=== PATIENT | male | born 1990 | race Hispanic/Latino ===

== ENCOUNTER 2018-03-16 21:53 | Emergency (ER) | payer SELFPAY ==
[2018-03-16] MEDS ORDERED: SODIUM CHLORIDE 0.9% 1000ML 1,000 ML IVS ONE (22:10)
[2018-03-16 22:11] VITALS: O2SAT 99
--- NOTE | 2018-03-16 22:29 | ED.PDOC ---
History of Present Illness - General Chief Complaint: Bite: Animal/Insect/Human Stated Complaint: Snake Bite Time Seen by Provider: 03/16/18 22:25 Source: patient, family - Exam Limitations: no limitations - History of Present Illness Initial Comments: Timmy Segovia 27 y/o male brought to ER with snake bite on his right index finger.Stated snake was seen by in their bathroom and called up patient which tired to get hold of the snake but was bitten on the right index finger.No sob,no pain /swelling on the finger,no dizziness. Timing/Duration: 1-3 hours Severity: moderate Improving Factors: nothing Worsening Factors: nothing Associated Symptoms: denies symptoms Allergies/Adverse Reactions: Allergies NO KNOWN ALLERGY Allergy (Verified 03/16/18 22:01) Home Medications: Ambulatory Orders Amoxicillin [Amoxil] 1,000 mg PO BID 7 Days #30 cap 03/16/18 Review of Systems - Review of Systems Constitutional: States: no symptoms reported EENTM: States: no symptoms reported Respiratory: States: no symptoms reported Cardiology: States: no symptoms reported Skin: States: see HPI Neurological: States: no symptoms reported All other Systems: Reviewed and Negative, No Change from Baseline Past Medical History (General) - Patient Medical History Hx Seizures: No Hx Stroke: No Hx Dementia: No Hx Asthma: No Hx of COPD: No Hx Cardiac Disorders: No Hx Congestive Heart Failure: No Hx Pacemaker: No Hx Hypertension: No Hx Thyroid Disease: No Hx Diabetes: No Hx Gastroesophageal Reflux: No Hx Renal Disease: No Hx Cancer: No Hx of HIV: No Hx Hepatitis C: No Hx MRSA: No Surgical History: no surgical history - Vaccination History Hx Tetanus, Diphtheria Vaccination: Yes - 2017 Hx Influenza Vaccination: No Hx Pneumococcal Vaccination: No - Social History Hx Tobacco Use: No Hx Alcohol Use: Yes - Occasional Hx Substance Use: No Hx Substance Use Treatment: No Hx Depression: No Feels Threatened In Home Enviroment: No Feels Threatened In a Relationship: No Hx Physical Abuse: No Hx Emotional Abuse: No Hx Suspected Abuse: No - Activities of Daily Living Hospice Agency (if applicable):: None - Female History Patient is a Female of Child Bearing Age (10 -59 yrs old): No - Triage Comment ED Triage Comment: Pt states that he was bitten by a snake 20 minutes ago by a small snake on his right middle finger. Family Medical History - Family History Mother Family History: Unknown Physical Exam - Physical Exam General Appearance: Alert, Comfortable, No apparent distress Eye Exam: bilateral normal Ears, Nose, Throat: hearing grossly normal, normal ENT inspection Neck: supple Respiratory: lungs clear, normal breath sounds Cardiovascular/Chest: normal peripheral pulses, regular rate, rhythm Peripheral Pulses: radial,right: 2+, radial,left: 2+ Gastrointestinal/Abdominal: non tender, soft, no organomegaly Back Exam: normal inspection, no CVA tenderness, no vertebral tenderness Extremity: non-tender, no pedal edema, no calf tenderness Neurologic: alert, oriented x 3 Skin Exam: normal color, warm/dry, other - right index finger-superficial abrasion middle phalanx;ROM full Progress - Progress Progress: 03/16/18 22:31 Vital Signs - 8 hr 03/16/18 03/16/18 21:59 22:02 Temperature 97.1 F L Pulse Rate [ 71 71 Monitor] Respiratory 18 18 Rate Blood Pressure 134/84 [Left Arm] O2 Sat by Pulse 99 Oximetry 03/16/18 23:48 Patient denies pain,SOB,able to make a fist right hand w/o pain - Results/Orders Results/Orders: Laboratory Results - last 24 hr 03/16/18 03/16/18 03/16/18 22:30 22:30 22:30 WBC 6.0 RBC 4.64 L Hgb 14.3 Hct 40.6 L MCV 87.4 MCH 30.8 MCHC 35.1 RDW 13.4 Plt Count 215 MPV 7.6 Absolute Neuts (auto) 2.70 Absolute Lymphs (auto) 2.50 Absolute Monos (auto) 0.50 Absolute Eos (auto) 0.20 Absolute Basos (auto) 0.00 Neutrophils % 45.9 Lymphocytes % 41.1 Monocytes % 9.1 H Eosinophils % 3.4 Basophils % 0.5 PT 11.0 H INR 1.10 PTT (SP) 27.9 Fibrinogen Sodium 142 Potassium 3.2 L Chloride 108 Carbon Dioxide 27 Anion Gap 10.2 L BUN 13 Creatinine 1.02 BUN/Creatinine Ratio 12.7 Random Glucose 94 Serum Osmolality 283.0 Calcium 9.3 Total Bilirubin 0.9 AST 23 ALT 17 Alkaline Phosphatase 76 Serum Total Protein 7.5 Albumin 4.9 Globulin 2.6 Albumin/Globulin Ratio 1.9 03/16/18 22:30 WBC RBC Hgb Hct MCV MCH MCHC RDW Plt Count MPV Absolute Neuts (auto) Absolute Lymphs (auto) Absolute Monos (auto) Absolute Eos (auto) Absolute Basos (auto) Neutrophils % Lymphocytes % Monocytes % Eosinophils % Basophils % PT INR PTT (SP) Fibrinogen 194 L Sodium Potassium Chloride Carbon Dioxide Anion Gap BUN Creatinine BUN/Creatinine Ratio Random Glucose Serum Osmolality Calcium Total Bilirubin AST ALT Alkaline Phosphatase Serum Total Protein Albumin Globulin Albumin/Globulin Ratio Departure - Departure Clinical Impression: Bite, snake, non-venomous Qualifiers: Encounter type: initial encounter Qualified Code(s): W59.11XA - Bitten by nonvenomous snake, initial encounter Abrasion of finger Qualifiers: Encounter type: initial encounter Qualified Code(s): S60.419A - Abrasion of unspecified finger, initial encounter Time of Disposition: 23:44 Disposition: Discharge to Home or Self Care Condition: Good Departure Forms: ED Discharge - Pt. Copy, Patient Portal Self Enrollment Instructions: DI for Snake Bite Prescriptions: Amoxicillin [Amoxil] 1,000 mg PO BID 7 Days #30 cap Home Medications: Ambulatory Orders Amoxicillin [Amoxil] 1,000 mg PO BID 7 Days #30 cap 03/16/18 Additional Instructions: Return to ER as needed
[2018-03-16] MEDS ORDERED: TETANUS,DIPHTHERIA,PERTUSSIS 1 EA SYG IM ONE (22:32)
[2018-03-16] MEDS ORDERED: AMOXICILLIN 500 MG CAP PO ONE (23:44)
[2018-03-17 00:06] VITALS: BP 122/72; TEMP 97.3
== END 2018-03-17 00:05 | disposition home or self-care (01) ==
LOC: ER 21:53
DX: S60.410A Abrasion of right index finger, initial encounter (principal); W59.11XA Bitten by nonvenomous snake, initial encounter; Y92.002 Bathroom of unspecified non-institutional (private) residence as the place of occurrence of the external cause
CPT/HCPCS: 36415; 80053; 85025; 85384; 85610; 85730; J7030